=== PATIENT | female | born 1980 | race African-American/Black ===

== ENCOUNTER 2025-06-02 16:10 | Emergency (ER) | payer MEDICAID, OTHER ==
[~2025-06-02] VITALS: Ht 160 cm; Wt 109.0 kg
[2025-06-02 16:14] VITALS: O2SAT 99
[2025-06-02] MEDS ORDERED: IBUP-2030 MT (19:44)
[2025-06-02] MEDS ORDERED: LIDO700A30 TP (19:44)
[2025-06-02] MEDS: IBUPROFEN 800MG TABLET PO ONE (20:04)
[2025-06-02] MEDS: LIDOCAINE 5% PATCH TOP STA (20:05)
[2025-06-02 20:12] VITALS: BP 171/112; PULSE 100; RESP 12; TEMP 36.9; O2SAT 99
== END 2025-06-02 20:12 | disposition home or self-care (01) ==
LOC: ER 16:10
DX: S50.811A Abrasion of right forearm, initial encounter (principal); F31.9 Bipolar disorder, unspecified; W01.0XXA Fall on same level from slipping, tripping and stumbling without subsequent striking against object, initial encounter; Y93.89 Activity, other specified; Y92.89 Other specified places as the place of occurrence of the external cause; Y99.8 Other external cause status
CPT/HCPCS: 71100; 99283